=== PATIENT | male | born 1940 | race Caucasian/White ===

== ENCOUNTER → 2022-01-13 | Outpatient (CLI) | payer MEDICARE, SELFPAY ==
[2022-01-13 11:47] LABS: Amphetamine Urine VISTA NEGATIVE (<1000 ng/mL); Barbiturate Urine VISTA NEGATIVE (< 200 ng/mL); Benzodiazepine Urine VISTA NEGATIVE (< 200 ng/mL); Cocaine Urine VISTA NEGATIVE (< 300 ng/mL); Ecstacy Urine VISTA NEGATIVE (< 500 ng/mL); Methadone Urine VISTA NEGATIVE (< 300 ng/mL); PCP Urine VISTA NEGATIVE (< 25 ng/mL); THC Urine VISTA NEGATIVE (< 50 ng/mL); Vista UDS pH Range 5
== END | disposition home or self-care (01) ==
PROVIDERS: PCP Family Medicine; Referring Provider Anesthesiology Pain Medicine; Visit Provider Anesthesiology Pain Medicine
DX: F11.20 Opioid dependence, uncomplicated (principal)
CPT/HCPCS: 80307

== ENCOUNTER → 2022-09-22 | Outpatient (CLI) | payer MEDICARE, SELFPAY ==
[2022-09-22 11:18] LABS: Amphetamine Urine VISTA NEGATIVE (<1000 ng/mL); Barbiturate Urine VISTA NEGATIVE (< 200 ng/mL); Benzodiazepine Urine VISTA NEGATIVE (< 200 ng/mL); Cocaine Urine VISTA NEGATIVE (< 300 ng/mL); Ecstacy Urine VISTA NEGATIVE (< 500 ng/mL); Methadone Urine VISTA NEGATIVE (< 300 ng/mL); PCP Urine VISTA NEGATIVE (< 25 ng/mL); THC Urine VISTA NEGATIVE (< 50 ng/mL); Vista UDS pH Range 6
== END | disposition home or self-care (01) ==
PROVIDERS: PCP Family Medicine; Referring Provider Anesthesiology Pain Medicine; Visit Provider Anesthesiology Pain Medicine
DX: F11.20 Opioid dependence, uncomplicated (principal)
CPT/HCPCS: 80307

== ENCOUNTER → 2023-06-29 | Outpatient (CLI) | payer MEDICARE, SELFPAY ==
[2023-06-29 17:06] LABS: Amphetamine Urine VISTA NEGATIVE (<1000 ng/mL); Barbiturate Urine VISTA NEGATIVE (< 200 ng/mL); Benzodiazepine Urine VISTA NEGATIVE (< 200 ng/mL); Cocaine Urine VISTA NEGATIVE (< 300 ng/mL); Ecstacy Urine VISTA NEGATIVE (< 500 ng/mL); Methadone Urine VISTA NEGATIVE (< 300 ng/mL); PCP Urine VISTA NEGATIVE (< 25 ng/mL); THC Urine VISTA NEGATIVE (< 50 ng/mL); Vista UDS pH Range 7
== END | disposition home or self-care (01) ==
PROVIDERS: PCP Family Medicine; Referring Provider Anesthesiology Pain Medicine; Visit Provider Anesthesiology Pain Medicine
DX: F11.20 Opioid dependence, uncomplicated (principal)
CPT/HCPCS: 80307

== ENCOUNTER → 2024-05-22 | Outpatient (CLI) | payer MEDICARE, SELFPAY ==
--- NOTE | 2024-05-22 11:00 | MRI_ITS ---
STUDY: MRI LUMBAR SPINE WITHOUT CONTRAST REASON FOR EXAM: Male, 83 years old. RADICULOPATHY TECHNIQUE: Standardized fat and water weighted pulse sequences were obtained in the sagittal and axial planes. COMPARISON: None FINDINGS: T12-L1: Normal endplates. Normal disc height, hydration and morphology. Normal bilateral facet joints. Normal central canal and bilateral lateral recesses. Normal bilateral intervertebral neural foramina. Normal lumbar lordosis. There is no substantial scoliosis. Normal conus medullaris that terminates at the L2 level. Multilevel foci of T2 lengthening at almost all levels. T1 signal is variable. L1-2: Spondylitic endplates. Normal disc height, hydration and morphology. Normal bilateral facet joints. Normal central canal and bilateral lateral recesses. Normal bilateral intervertebral neural foramina. L2-3: Circumferential disc marginal osteophyte. Moderate narrowing of the neural foramina bilaterally. Central thecal sac patent. Small left posterior disc protrusion. L3-4: Circumferential annular bulge. Hypertrophic facet disease. Moderate trefoil type narrowing of the thecal sac and neural foramina. L4-5: Slight anterior subluxation with unroofing of the posterior disc. Hypertrophic fluid-filled facet. Moderately severe trefoil type narrowing of the thecal sac and neural foramina bilaterally. L5-S1: Normal endplates. Decreased disc height, hydration and morphology. Normal bilateral facet joints. Normal central canal and bilateral lateral recesses. Normal bilateral intervertebral neural foramina. Normal visualized sacral ala. Normal visualized paraspinous soft tissue structures. MRI/Spine Lumbar (Routine) IMPRESSION: Grade 1 spondylolisthesis L4-5. Small disc protrusion/extrusion at L2-3. Multilevel spinal stenosis of about. Multifocal lesions as noted above. Metastatic disease not excluded. Follow-up MRI with and without IV contrast recommended. Electronically Signed: Rambo Elena MD at 0:33 EST Reading Location ID and State: [facility] / [place] Tel , Service support ,
== END | disposition home or self-care (01) ==
PROVIDERS: PCP Family Medicine; Referring Provider Anesthesiology Pain Medicine; Visit Provider Anesthesiology Pain Medicine
DX: M54.16 Radiculopathy, lumbar region (principal)
CPT/HCPCS: 72148

== ENCOUNTER → 2024-08-25 | Outpatient (CLI) | payer MEDICARE, SELFPAY ==
--- NOTE | 2024-08-25 10:34 | MRI_ITS ---
PROCEDURE: SPINE LUMBAR W/WO CONTRAST ([id number]), 08/25/2024 REASON FOR EXAM: SPINAL STENOSIS TECHNIQUE: Multisequence multiplanar MR of the lumbar spine was performed with and without IV contrast. Contrast: 17 mL Clariscan COMPARISON: 05/22/2024 FINDINGS: For the purposes of this report, the last well-formed disc space will be assigned L5-S1. Similar alignment and multilevel degenerative changes better as described recently, including variable multilevel spinal canal stenoses up to severe at L4-L5 with anterolisthesis at that level, facet arthropathy and variable foraminal stenoses up to severe on the LEFT at L4-L5. Similar mild lumbar dextroscoliosis with apex at L2-L3. Vertebral body heights are preserved. Background marrow heterogeneity noted. Prominent degenerative type marrow signal changes from L2-L3 and L3-L4 to a lesser degree. 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 There is an indeterminate T1 dark, T2 bright, and enhancing lesion within the LEFT lateral aspect of the vertebral body measuring 10 mm. Additional indeterminate T1/T2 dark nonenhancing lesion within the RIGHT lateral aspect of the L1 vertebral body measuring 8 mm. T1 dark, T2 bright, and enhancing lesion within the RIGHT lateral aspect of T12 measures 5 mm. Indeterminate 10 mm lesion within the LEFT posterolateral aspect of the T11 vertebral body demonstrates peripheral T1 hyperintensity, central T1 hypointensity, T2 hyperintensity, and enhancement. These are essentially unchanged allowing for technical differences including the lack of IV contrast previously. No abnormal enhancement of the cauda equina. There is prominent ventral epidural enhancement associated with the previously described LEFT paracentral/subarticular L2-L3 disc protrusion which extends inferior to the disc space along the posterior aspect of the L3 vertebral body, up to 6 mm in thickness. This has not changed appreciably allowing for the absence of IV contrast previously. Partially imaged presumed LEFT renal cyst. MRI/Spine Lumbar W/WO Contrast IMPRESSION: 1. Heterogeneous background marrow signal with presumed degenerative marrow sig nal changes, making delineation of discrete lesions somewhat challenging. No appreciable short interval change in the size of multifocal bony lesions as detailed, some of which appear typical for benign vertebral body hemangiomas, while others remain indeterminate, largest 10 mm at L1. Although these could reflect atypical hemangiomas, this is not definite. Correlate with patient's medical history, as osseous metastasis cannot be entirely excluded. Comparison with any available outside imaging wou ld also be helpful. If unavailable, recommended clinical follow-up. PET/CT, follow-up MRI lumbar spine in 3-6 months, or perha ps tissue sampling could be considered, based on the level of clinical concern. At a minimum, would suggest imaging follow-up g iven some lesions remain indeterminate. 2. Prominent ventral epidural enhancement associated with the previously descri bed LEFT L2-L3 disc protrusion with inferior migration, up to 6 mm in thickness. Although disc protrusions are typically no nenhancing, this could reflect prominent granulation tissue associated with the protrusion. In light of the above, stacie mmend attention on follow-up. No definite adjacent osseous lesion or abnormal intrathecal enhancement to confirm neoplast ic involvement. 3. Multilevel spondylosis as detailed previously. 4. Additional description as above. Reading Location: [id number]
== END | disposition home or self-care (01) ==
LOC: MRI 10:22
PROVIDERS: PCP Family Medicine; Referring Provider Anesthesiology Pain Medicine; Visit Provider Anesthesiology Pain Medicine
DX: M48.00 Spinal stenosis, site unspecified (principal)
CPT/HCPCS: 72158; A9575

== ENCOUNTER 2024-10-18 15:51 | Outpatient (CLI) | payer MEDICARE, SELFPAY ==
[2024-10-18 17:14] LABS: Hematocrit 37.7 % (40-54); Hemoglobin 12.3 g/dL (13.0-16.5); Mean Corp Hgb Conc 32.6 g/dL (32-36); Mean Corpuscular Hgb 30.9 pg (27.0-32.0); Mean Corpuscular Volume 94.7 fL (80-94); Mean Platelet Vol. 10.3 fl (6.2-12.0); Platelet Count 302 K/mm3 (150-450); RBC Distribution Width CV 12.6 % (11.6-14.6); RBC Distribution Width SD 43.7 fl (35.1-43.9); Red Blood Count 3.98 M/mm3 (4.6-6.2); White Blood Count 7.6 K/mm3 (4.4-11.0)
== END 2024-10-18 23:59 | disposition home or self-care (01) ==
LOC: LAB 15:54
PROVIDERS: PCP Family Medicine; Referring Provider Anesthesiology Pain Medicine; Visit Provider Anesthesiology Pain Medicine
DX: Z13.9 Encounter for screening, unspecified (principal)
CPT/HCPCS: 36415; 85027

== ENCOUNTER → 2025-02-20 | Outpatient (CLI) | payer MEDICARE, SELFPAY ==
[2025-02-20 12:14] LABS: Barbiturate Urine NEGATIVE (< 200 ng/mL); Benzodiazepine Urine NEGATIVE (< 200 ng/mL); PCP Urine NEGATIVE (< 25 ng/mL); THC Urine NEGATIVE (< 50 ng/mL)
== END | disposition home or self-care (01) ==
LOC: LAB 10:38
PROVIDERS: PCP Family Medicine; Referring Provider Anesthesiology Pain Medicine; Visit Provider Anesthesiology Pain Medicine
DX: F11.20 Opioid dependence, uncomplicated (principal)
CPT/HCPCS: 80307